=== PATIENT | female | born 2000 | race Caucasian/White ===

== ENCOUNTER 2021-06-11 22:51 | Emergency (ER) | payer BC ==
[~2021-06-11] VITALS: Ht 170.2 cm; Wt 70.0 kg
[2021-06-11 23:03] VITALS: TEMP 98
[2021-06-12] LABS: STREP SCREEN NEGATIVE
[2021-06-12 00:16] LABS: MONOSCREEN POSITIVE
[2021-06-12 00:40] VITALS: BP 134/70; PULSE 76
== END 2021-06-12 00:40 | disposition home or self-care (01) ==
LOC: COL.ER 22:51
PROVIDERS: Nurse Practitioner Primary Care
DX: B27.90 Infectious mononucleosis, unspecified without complication (principal)